=== PATIENT | female | born 1990 | race African-American/Black ===

== ENCOUNTER → 2017-06-19 | Emergency (ER) | payer MEDICAID ==
[~2017-06-19] VITALS: Ht 157.5 cm; Wt 117.9 kg
[~2017-06-19] MED LIST: CLARITIN10 M2 ORAL; Oxymetazoline 0.05% Na Spray 30ml NASAL ONE; Silver Nitrate Stick TOPIC ONE
[2017-06-19 11:43] VITALS: BP 142/87
[2017-06-19 12:45] VITALS: BP 142/87
--- NOTE | 2017-06-25 19:58 | Emergency Room Report ---
History of Present Illness General Chief Complaint: Nosebleed Source: Patient Present Illness HPI Patient is a 27-year-old female who presented after increased nosebleed. Patient gradual onset of symptoms. Patient reported having intermittent bleeding from both nares. She stated this was worsened on the left side. She denies taking any blood thinners. She denied any lightheadedness or weakness. She reports having recent upper respiratory congestion. She stated that this had began nose blowing episodes. She denies recent trauma. She denies prior history of anemia. Allergies: Coded Allergies: No Known Allergies (Unverified , 06/19/17) Patient History Past Medical History: see triage record Reviewed Nursing Documentation: PMH: Agreed, PSxH: Agreed Nursing Documentation-PMH Past Medical History: No History, Except For Hx Hypertension: Yes Review of Systems All Other Systems: negative except mentioned in HPI Physical Exam Vital Signs Date Time Temp Pulse Resp B/P (MAP) Pulse Ox O2 Delivery O2 Flow Rate FiO2 06/19/17 11:31 97.9 98 20 142/87 100 Room Air General Appearance: well appearing, no apparent distress, alert, GCS 15 Head: normocephalic, atraumatic ENT: hearing grossly normal, normal voice, other - left nare with minimal bleeding from nasal septum, right nare normal Neck: full range of motion, supple Respiratory: no respiratory distress, speaking full sentences Musculoskeletal: no calf tenderness Neurologic: normal gait Psychiatric: mood/affect normal Skin: no rash Medical Decision Making Diagnostic Impression: Primary Impression: Epistaxis Additional Impression: Upper respiratory infection ER Course Patient presented for nosebleed. Differential diagnosis included wasn't limited to coagulopathy, anemia, anterior, posterior epistaxis among others. Patient's benign exam and does not appear to require any further imaging or laboratory testing at this time. The patient's left naris cauterized with silver nitrate. Patient noted have no active bleeding after cauterization. Patient is advised to have laboratory testing checked with her primary care physician the next few days. She is advised to return. if bleeding recurred or she had any onset of new symptom such as weakness or other. The patient is advised to follow up with primary care doctor in 1-2 days. Patient is advised to return if any worsening condition or if any changes in status that are concerning. This report is dictated with [employer] optical fabrication technician software which may occasionally lead to discrepancies related to use of this software. Last Vital Signs Date Time Temp Pulse Resp B/P (MAP) Pulse Ox O2 Delivery O2 Flow Rate FiO2 06/19/17 12:45 97.9 85 20 142/87 100 Room Air Status: improved Disposition: HOME, SELF-CARE Condition: Stable Scripts Loratadine (CLARITIN) 10 Mg Capsule 10 MG ORAL DAILY, #30 CAP Prov: Mason Loza 06/19/17 Referrals: [facility]ERR[facility] (PCP) Patient Instructions: Upper Respiratory Infection, Adult, Nosebleed Mason Loza Jun 25, 2017 19:58
== END | disposition home or self-care (01) ==
LOC: EDSEX 11:30 → EMR 12:30
DX: R04.0 Epistaxis (principal); J06.9 Acute upper respiratory infection, unspecified; I10 Essential (primary) hypertension
CPT/HCPCS: 99282